=== PATIENT | female | born 1965 | race Hispanic/Latino ===

== ENCOUNTER 2017-08-10 22:36 | Emergency (ER) | payer MEDICARE ==
[~2017-08-10 22:36] MED LIST: ISOVUE-370 76%-LOCM 1 ML ONE
[2017-08-10 23:18] LABS: #Eosinphils 0.1 thou/uL (0.0-0.7); #Lymphocytes 2.2 thou/uL (1.20-3.40); #Monocytes 0.4 thou/uL (0.11-0.59); #Neutrophils 4.9 thou/uL (1.40-6.50); %Basophils 0.4 % (0.0-1.0); %Eosinophils 1.2 % (0.0-10.0); %Lymphocytes 28.9 % (21.0-51.0); %Monocytes 5.7 % (0.0-10.0); Hematocrit 40.9 % (36.0-47.0); Mean Platelet Volume 8.3 fL (7.4-10.4); Red Blood Cell (RBC) Count 4.48 mill/uL (4.20-5.40); White Blood Cell (WBC) Count 7.7 thou/uL (4.8-10.8)
--- NOTE | 2017-08-10 23:22 | RAD ---
HISTORY: Chest pain. 51-year-old female. AP view chest is obtained. The lungs are well aerated. No evidence of active intrathoracic disease s een. No evidence of effusions, pneumonia or pneumothorax seen. IMPRESSION: Unremarkable AP view chest. POS: [facility]
[2017-08-10] MEDS ORDERED: Morphine 2 MG/ML SYRINGE ONE (23:27)
[2017-08-10] MEDS ORDERED: Ondansetron HCl/PF 4 MG/2 ML Vial ONE (23:27)
[2017-08-10 23:40] LABS: ALT (SGPT) 14 U/L (8-55); AST (SGOT) 15 U/L (5-34); Alkaline Phosphatase 97 U/L (40-150); Anion Gap 16 mmol/L (10-20); BUN (Urea Nitrogen) 13 mg/dL (9.8-20.1); Bilirubin, Total 0.4 mg/dL (0.2-1.2); CK (CPK) 48 U/L (29-168); Calc. Creatinine Clearance 0 mL/min (70-130); Calcium 9.4 mg/dL (7.8-10.44); Carbon Dioxide 21 mmol/L (22-29); Chloride 105 mmol/L (98-107); Estimated GFR-MDRD 71; Globulin 3.7 g/dL (2.4-3.5); Lipase 45 U/L (8-78); Protein, Total 7.8 g/dL (6.0-8.3)
[2017-08-10 23:42] LABS: Troponin I Less than 0.010 ng/mL (< 0.028)
--- NOTE | 2017-08-10 23:42 | CT ---
HISTORY: Epigastric pain for [address] images of the abdomen and pelvis is obtained after the administration of IV con trast. Unfortunately oral contrast was not given. This does decrease sensitivity for detection of pa thology. The lung bases are unremarkable. The liver and spleen are unremarkable. The gallbladder has been surgically removed. The pancreas is unremarkable. Surgical erica seen in what is thought to be the stomach; however, as mentioned abov e, due to the lack of oral contrast I cannot be definitively sure whether there is fluid external to the GI lumen. Correlate with GI surgical history. Along the right paracentral aspect of the mid abd omen there is a defect in the anterior abdominal wall with herniation of colon through the anterior abdominal wall. A large amount of stool is seen in the proximal colon. No definite evidence of small bowel obstruction is seen. There is a heterogeneous pelvic mass possibly representing a enlarged uterus with numerous fibroids . No evidence of periaortic lymphadenopathy is seen. Multilevel lumbar degenerative changes seen. The kidneys are unremarkable. IMPRESSION: 1. Surgical changes possibly involving the stomach. I cannot exclude the possibility of extralu franklyn fluid or abscess as oral contrast was not given and there appears to be possible postsurgical changes versus abscess in this region. 2. Right midline anterior colonic herniation. 3. Soft tissue mass in the pelvis possibly representing an enlarged uterus. POS: [facility] [place]
[2017-08-11] MEDS ORDERED: Dexamethasone 10 MG/ML VIAL ONE (00:03)
[2017-08-11 00:44] LABS: Lactic Acid - Sepsis 2.8 mmol/L (0.5-2.2)
[2017-08-11] MEDS ORDERED: Morphine 2 MG/ML SYRINGE ONE (01:15)
--- NOTE | 2017-08-11 08:38 | ULT ---
PRELIMINARY REPORT/[facility]/EMERGENCY AFTER HOURS PROCEDURE: EXAM: US Abdomen Complete CLINICAL HISTORY: 51 years old, female; Pain and signs and symptoms; Nausea and vomiting and other: Diarrhea; Abdomina l pain; Localized; Left upper quadrant (luq); Prior surgery; Surgery date: 6+ months; Surgery type: Gastric bypass; Patient HX: Luq pain x 2 days, n/v/d x 1 day; Additional info: HX: Cholecystectomy, gastric bypass TECHNIQUE: Real-time ultrasound of the abdomen (complete) with image documentation. COMPARISON: No relevant prior studies available. FINDINGS: Liver: Liver is enlarged, measuring 20.8 cm in sagittal dimension. No intrahepatic bile duct dilatio n. Gallbladder: Gallbladder is surgically absent. Common bile duct: Common bile duct measures 7 mm in diameter. No stones. No dilation. Pancreas: Pancreas not well-visualized secondary to overlying bowel gas. Kidneys: Right kidney is normal in appearance and measures 11.8 cm in length. No stones. No hydronep hrosis. Spleen: Normal. No splenomegaly. Aorta: Normal. No aneurysm. Other findings: Sonographic evaluation of the area of reported pain within the left upper abdomen de monstrates prominent bowel gas. IMPRESSION: 1. No acute findings. 2. Prominent bowel gas within the left upper quadrant in area of reported pain. 3. Mild hepatomegaly. Thank you for allowing us to participate in the care of your patient. Dictated and Authenticated by: Rasta Pineda MD 08/11/2017 1:20 AM Central Time ([place] \T\ [place]) FINAL REPORT EMERGENT AFTER HOURS STUDY ULTRASOUND ABDOMEN COMPLETE: DATE: 08/11/2017 TIME: 12:52 a.m. HISTORY: A 51-year-old female with left upper quadrant pain for two days with nausea and emesis. TECHNIQUE: Taveras-scale ultrasound evaluation of the liver, gallbladder, spleen, pancreas, common bile duct, kidn eys, abdominal aorta, and inferior vena cava (IVC). FINDINGS: The gallbladder is surgically absent. The images of the left upper quadrant demonstrate almost comp lete obscuring of the intraabdominal contents in that area due to shadowing by bowel gas. No aneury sm of the proximal and mid abdominal aorta. Distal abdominal aorta is obscured by shadowing from [place] wel gas. No splenomegaly. No hydronephrosis bilaterally. The liver is mildly enlarged. Hepatic e chogenicity is within normal limits. Nonspecific sonographic appearance of the pancreas. No hydron ephrosis bilaterally. Common duct 7 mm. Gallbladder surgically absent. Unremarkable visualized po rtions of IVC. This report agrees with the preliminary report by Beth. IMPRESSION: 1. Status post cholecystectomy. 2. Mild hepatomegaly. 3. Area of pain in the left upper quadrant is obscured by shadowing from bowel gas. See separate r eport of the CT of the abdomen. HEATH R POS: [facility]
== END 2017-08-11 02:08 | disposition home or self-care (01) ==
LOC: ERS 22:36
DX: R10.13 Epigastric pain (principal); E66.9 Obesity, unspecified; I10 Essential (primary) hypertension; E11.9 Type 2 diabetes mellitus without complications; Z79.4 Long term (current) use of insulin
CPT/HCPCS: 71010; 74177; 76700; 80053; 82550; 82553; 83605; 83690; 83880; 84484; 85025; 93005; 96361; 96374; 96375; 96376; J1100; J2270; J2405